=== PATIENT | male | born 1980 | race Caucasian/White ===

== ENCOUNTER 2018-05-28 08:01 | Day surgery (SDC) | payer OTHER, BC ==
[~2018-05-28] VITALS: Ht 185.4 cm; Wt 81.6 kg
[2018-05-28] MEDS ORDERED: ROCURONIUM BROMIDE 10 MG/ML (ZEMURON) IV ONE (10:00)
[2018-05-28] MEDS ORDERED: BACITRACIN ZINC 15 GM TOPICAL OINTMENT TP ONE (10:00)
[2018-05-28] MEDS ORDERED: MIDAZOLAM HCL 5 MG/5 ML VIAL IVP ONE (10:00)
[2018-05-28] MEDS ORDERED: NS 1000 ML IV.SOLN IV ONE (10:00)
[2018-05-28] MEDS ORDERED: fentaNYL CITRATE/PF 100 MCG/2 ML AMP IVP ONE (10:00)
[2018-05-28] MEDS ORDERED: GLYCOPYRROLATE 0.2 MG/ML VIAL IJ ONE (10:00)
[2018-05-28] MEDS ORDERED: NEOSTIGMINE METHYLSULFATE 1 MG/ML, 10 ML VIAL IM ONE (10:00)
[2018-05-28] MEDS ORDERED: ONDANSETRON HCL 4 MG/2 ML VIAL IVP ONE (10:00)
[2018-05-28] MEDS ORDERED: PHENYLEPHRINE HCL 10 MG/ML VIAL (NEOSYNEPHRINE) IV ONE (10:00)
[2018-05-28] MEDS ORDERED: SEVOFLURANE 15 MIN GAS INH ONE (10:00)
[2018-05-28] MEDS ORDERED: LR 1,000 ML IV.SOLN IV ONE (10:00)
[2018-05-28] MEDS ORDERED: DEXAMETHASONE SOD PHOSPHATE 4 MG/ML VIAL IVP ONE (10:00)
[2018-05-28] MEDS ORDERED: BACITRACIN 1 GM OINT TP ONE (10:25)
[2018-05-28] MEDS ORDERED: EPINEPHrine 1 MG/ML AMP INFIL ONE (10:25)
[2018-05-28] MEDS ORDERED: LR 1,000 ML IV SCH (10:44)
[2018-05-28] MEDS ORDERED: MORPHINE 4 MG/ML INJ. SYRINGE IVP PRN ×3 (10:45)
[2018-05-28] MEDS ORDERED: METOCLOPRAMIDE HCL 10 MG/2 ML VIAL IVP PRN (10:45)
[2018-05-28 13:08] VITALS: BP_SYST 108
== END 2018-05-28 15:30 | disposition home or self-care (01) ==
LOC: SDS 08:01 → SMU 08:06 → SDS 15:30
PROVIDERS: ATTEND Otolaryngology
DX: J38.7 Other diseases of larynx (principal); K21.9 Gastro-esophageal reflux disease without esophagitis; J30.1 Allergic rhinitis due to pollen
CPT/HCPCS: 31536; 88305; J0171; J1100; J2250; J2370; J2405; J2710; J3010; J3490; J7030; J7120